=== PATIENT | female | born 1980 | race Caucasian/White ===

== ENCOUNTER → 2020-10-21 09:48 | Outpatient (CLI) | payer OTHER, SELFPAY ==
--- NOTE | ~2020-10-21 | US_ITS ---
EXAMINATION: US right upper quadrant EXAM DATE: 10/21/2020 10:10 INDICATION: R10.11 - Right upper quadrant pain TECHNIQUE: Multiple grayscale and Doppler images of the abdomen right upper quadrant were obtained (b y a technologist who performed the scan) and subsequently reviewed. There is no prior study for adonis miles. FINDINGS: The pancreatic head and body are normal in appearance. The pancreatic tail is not visualized. The l iver has normal echogenicity and contour. There are no focal liver lesions identified (small liver m ass seen on CT 2016 on identified on the study). There is no evidence of intrahepatic biliary duct dilation. Portal venous flow was seen in the hepatopedal, normal direction and has normal Doppler wa veform. No right-sided hydronephrosis. Common bile duct measures 4 mm, which is normal. The gallbladder wall is normal in thickness, with ex pected amount of distention. No sonographic evidence of pericholecystic fluid. There is no cholelit hiases. Technologist performing exam reports patient did not demonstrate sonographic Sapp's sign. Please note that this sign is less reliable in patients who have received pain medication. IMPRESSION: 1. Unremarkable abdominal ultrasound exam. Reviewed, dictated and finalized at location B. IVING TEAM MEMBER
== END ==
PROVIDERS: PCP Family Medicine; Visit Provider Physician Assistant
DX: R10.11 Right upper quadrant pain (principal)
CPT/HCPCS: 76705

== ENCOUNTER 2020-12-29 16:58 | Emergency (ER) | payer OTHER, SELFPAY ==
--- NOTE | 2020-12-29 17:11 | ED.GENADULT ---
HPI - General Adult General Chief complaint: Animal Bite Stated complaint: Dog Bite Time Seen by Provider: 12/29/20 17:11 Source: patient Mode of arrival: ambulatory Limitations: no limitations History of Present Illness HPI narrative: 40-year-old female patient presents to the [facility] with complaints of dog bite to the right hand, middle finger. 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 Patient states that she thinks that the dog is not up-to-date on shots and states that she was concerned because the cleanliness of the home was not good either. Patient denies any history of diabetes. Patient states she thinks her last tetanus was over 10 years ago. Related Data Allergies Allergy/AdvReac Type Severity Reaction Status Date / Time sulfamethoxazole Allergy Unknown Anaphylactic Verified 12/29/20 17:16 Shock trimethoprim Allergy Unknown Anaphylactic Verified 12/29/20 17:16 Shock Review of Systems Review of Systems: Narrative: CONSTITUTIONAL: Denies fever, chills, or sweats. EYES: Denies visual changes, redness, or discharge. ENT: Denies rhinorrhea, congestion, sore throat, or otalgia. CARDIOVASCULAR: Denies chest pain, palpitations, or edema. RESPIRATORY: Denies cough or dyspnea. GASTROINTESTINAL: Denies abdominal pain, nausea, vomiting, or diarrhea. GENITOURINARY: Denies dysuria or hematuria. SKIN: Denies rash or itching. Positive dog bite to right middle finger MUSCULOSKELETAL: Denies back pain, joint pain, or myalgia. NEUROLOGIC: Denies headache, numbness, or weakness. PSYCHIATRIC: Denies anxiety or depression. [facility] Past Medical History Medical History History of appendicitis Liver hemangioma BARRETT (obstructive sleep apnea) Ovarian cyst Surgical History Surgical History History of appendectomy History of removal of ovarian cyst Family History Family History Grandparent Chronic kidney disease Cancer Other Ovarian cancer Father Hypertension Mother Asthma Social History Social History Years smoked: 20 Smoking status: Current some day smoker Tobacco type: cigarettes Second hand tobacco smoke exposure: No Alcohol intake: current Drinks per week: 12 Substance use: never Substance use type: does not use Gender identity (if verbalized by the patient): Female Comments At the time of my signature I agree with nursing past medical history, surgical, social, and family history. There is no relevant family history pertinent to the presenting complaint. Exam Narrative: Exam Narrative: GENERAL: Well-appearing, well-nourished, and in no acute distress. HEAD: Normocephalic, atraumatic. EYES: PERRLA and EOMI. ENT: Nares clear, no rhinorrhea or epistaxis. Mucous membranes moist. NECK: Supple. No lymphadenopathy CHEST: Clear to auscultation. No respiratory distress. HEART: Regular rate and rhythm. No murmur heard. Normal peripheral pulses. ABDOMEN: Soft, nontender, nondistended, normal active bowel sounds. EXTREMITIES: Normal range of motion. No edema. SKIN: Warm, dry, no rash. Patient has some superficial abrasions and puncture and wounds noted to the right middle finger between the PIP and MIP joints. No active bleeding at this time. Patient has excellent range of motion. NEURO: No focal deficits. Alert and oriented x3. Course Vital Signs Vital signs: Vital Signs Temperature 36.3 C L 12/29/20 17:16 Pulse Rate 76 12/29/20 17:16 Respiratory Rate 16 12/29/20 17:16 Blood Pressure 143/97 H 12/29/20 17:16 Pulse Oximetry 99 12/29/20 17:16 Temperature 36.3 C L 12/29/20 17:16 Pulse Rate 76 12/29/20 17:16 R
[2020-12-29 17:16] VITALS: BP 143/97; PULSE 76; RESP 16; TEMP 36.3; O2SAT 99
[2020-12-29] MEDS: TETANUS,DIPHTHERIA,AC PERTUSSIS ADULT (0.5 ML) BOOSTRIX IM (17:27)
== END 2020-12-29 17:49 | disposition home or self-care (01) ==
PROVIDERS: Emergency Provider Nurse Practitioner Family; PCP Family Medicine
DX: S61.232A Puncture wound without foreign body of right middle finger without damage to nail, initial encounter (principal); S60.412A Abrasion of right middle finger, initial encounter; W54.0XXA Bitten by dog, initial encounter; Z23 Encounter for immunization; F17.210 Nicotine dependence, cigarettes, uncomplicated; G47.30 Sleep apnea, unspecified
CPT/HCPCS: 90471; 90715; 99213; G0463

== ENCOUNTER 2021-09-16 06:58 | Observation (INO) | payer OTHER, SELFPAY ==
[2021-09-16 08:35] VITALS: BMI 29.9
--- NOTE | 2021-09-19 07:42 | PM.OBTRLD ---
OB - Triage/Final Diagnosis Visit Information Reason for evaluation: threatened labor Comments/Additional reasons for admission: I have assessed the risk for this patient, Erin Adonis Tavarez, and determined that she would benefit from observation care.
== END 2021-09-16 08:50 | disposition home or self-care (01) ==
PROVIDERS: Admitting Provider Obstetrics & Gynecology; PCP Family Medicine; Visit Provider Obstetrics & Gynecology
DX: O47.1 False labor at or after 37 completed weeks of gestation (principal); Z3A.37 37 weeks gestation of pregnancy
CPT/HCPCS: G0378; G0379

== ENCOUNTER 2021-10-01 17:10 | Inpatient (IN) | payer OTHER, SELFPAY ==
[2021-10-01] VITALS (11 sets, daily range): BP systolic 93–109; BP diastolic 51–66; PULSE 79–90; RESP 18; TEMP 36.7–36.8
--- NOTE | 2021-10-01 17:37 | WPDANESEPP ---
Anes - Eval Pre Procedure Procedure: Labor epidural Date/Time: 10/01/21 17:37 Surgeon: Satinder Preop Diagnosis: Abd pain with contractions Pre Op Diagnosis: iol Patient Data Age: 40 Gender: F Height: Weight: Allergies Allergy/AdvReac Type Severity Reaction Status Date / Time sulfamethoxazole Allergy Severe Anaphylactic Verified 09/04/21 15:46 Shock trimethoprim Allergy Severe Anaphylactic Verified 09/04/21 15:46 Shock Home Medications Medication Instructions Recorded Confirmed Type aspirin [Aspirin Low Dose] 81 mg PO DAILY 09/04/21 09/16/21 History ferrous sulfate 325 mg PO DAILY 09/04/21 09/16/21 History prenat.vits,veronica,[id number] 1 tablet PO DAILY 09/04/21 09/16/21 History Patient hx anesthesia problems: none Family hx anesthesia problems: none Results Review: All pre-operative results and documents have been reviewed as part of the pre-operative evaluation. [facility] Past Medical History Medical History Anemia History of appendicitis History of smoking Liver hemangioma Obesity BARRETT (obstructive sleep apnea) Ovarian cyst Panic attack Polyhydramnios and not yet delivered Surgical History Surgical History History of appendectomy History of removal of ovarian cyst Family History Family History Grandparent Chronic kidney disease Cancer Other Ovarian cancer Father Hypertension Mother Asthma Social History Social History Years smoked: 20 Smoking status: Current some day smoker Tobacco type: cigarettes Second hand tobacco smoke exposure: No Alcohol intake: current Drinks per week: 12 Substance use: never Substance use type: does not use Gender identity (if verbalized by the patient): Female Spiritual care concerns: No Exam Day of Procedure 10/01/21 17:37 Patient weight: obese Airway: Mallampati scale class II Neurological: alert and oriented
[2021-10-01 17:47] LABS: Basophils Absolute Auto 0.1 K/mm3 (0.0-0.1); Basophils Percent Auto 0.5 % (0.2-1.2); Eosinophils Absolute Auto 0.1 K/mm3 (0-0.3); Eosinophils Percent Auto 0.7 % (0-4.4); Hematocrit 32.7 % (37.0-47.0); Hemoglobin 11.1 g/dL (12.0-15.0); Immature Granulocyte Absolute 0.23 K/mm3 (0.00-0.031); Immature Granulocyte Percent A 1.9 % (0-0.5); Lymphocytes Absolute Auto 1.61 K/mm3 (0.9-3.2); Lymphocytes Percent Auto 13.6 % (18.3-44.2); Mean Corpuscular HGB Conc 33.9 g/dl (32-36); Mean Corpuscular Volume 91.3 fl (80-100); Mean Platelet Volume 9.4 fl (7.4-10.4); Monocytes Absolute Auto 0.8 K/mm3 (0.1-0.6); Monocytes Percent Auto 6.4 % (2.6-8.5); Neutrophils Absolute Auto 9.1 K/mm3 (1.3-6.7); Neutrophils Percent Auto 76.9 % (45.5-73.1); Platelet Count Result 238 k/mm3 (150-375); Red Blood Count 3.58 M/mm3 (4.2-5.4); White Blood Count 11.8 K/mm3 (4.5-10.0)
--- NOTE | 2021-10-01 17:56 | LDADM ---
This patient, Erin Tavarez, was admitted to Labor/Delivery/Recovery 105 on 10/01/21 at 17:10. Plans for labor, pain management and were discussed with patient. Patient/family oriented to hospital policies and general routines including ID bracelet, bed and alarms, visiting hours, pain management, procedures, bathroom and other care routines, personal items, smoking policy, room service/diet and guest tray routines, infant security routines, and visiting hours. Patient/Family are encouraged to report perceived risks to care and to ask questions if they do not understand what they are told or what they should do. See OBIX for further documentation.
[2021-10-01] MEDS: DINOPROSTONE 10 MG VAG INSERT VAGINAL (18:26)
[2021-10-02] VITALS (108 sets, daily range): BP systolic 45–145; BP diastolic 13–118; PULSE 69–181; RESP 16–18; TEMP 36.2–37.4; O2SAT 89–100
[2021-10-02] MEDS: LACTATED RINGERS 1,000 ML 125 ML IV CONT ×3 (05:19→11:10)
[2021-10-02] MEDS: OXYTOCIN 30 UNITS/NS 500 ML 30 UNITS/500 ML BAG 6 UNITS IV CONT (05:19)
[2021-10-02 06:38] LABS: Rapid Plasma Reagin Non-Reactive (NonReactive)
--- NOTE | 2021-10-02 07:30 | PM.IMHP ---
H&P: HPI History of Present Illness Date/Time: 10/02/21 07:30 40-year-old 1 patient admitted for induction of labor at39+ weeks. She also has a known uterine left broad ligament fibroid which to this point has obstructed the vertex from entering the pelvis. Otherwise she has had advanced maternal age genetic counseling and all of the testing was normal in this regard. All or other labs are on the chart and are also normal as well. Chief Complaint: Review of Systems Review of Systems: All systems reviewed & are unremarkable except as noted in HPI and below PMFSH Past Medical History Medical History Anemia History of appendicitis History of smoking Liver hemangioma Obesity BARRETT (obstructive sleep apnea) Ovarian cyst Panic attack Polyhydramnios and not yet delivered Surgical History Surgical History History of appendectomy History of removal of ovarian cyst Family History Family History Grandparent Chronic kidney disease Cancer Other Ovarian cancer Father Hypertension Mother Asthma Social History Social History Years smoked: 20 Smoking status: Never smoker Tobacco type: cigarettes Second hand tobacco smoke exposure: No Alcohol intake: current Drinks per week: 12 Substance use: never Substance use type: does not use Gender identity (if verbalized by the patient): Female Spiritual care concerns: No Meds Home Medications and Allergies Home Medications Medication Instructions Recorded Confirmed Type aspirin [Aspirin Low Dose] 81 mg PO DAILY 09/04/21 09/16/21 History ferrous sulfate 325 mg PO DAILY 09/04/21 09/16/21 History prenat.vits,veronica,[id number] 1 tablet PO DAILY 09/04/21 09/16/21 History Allergies Allergy/AdvReac Type Severity Reaction Status Date / Time sulfamethoxazole Allergy Severe Anaphylactic Verified 09/04/21 15:46 Shock trimethoprim Allergy Severe Anaphylactic Verified 09/04/21 15:46 Shock Vital Signs Vital Signs - 24 hr 10/01/21 18:30 10/01/21 18:31 10/01/21 18:45 Temperature 36.8 C Pulse Rate 82 81 Respiratory Rate 18 Blood Pressure 109/66 105/66 10/01/21 19:01 10/01/21 19:15 10/01/21 19:30 Temperature Pulse Rate 90 82 79 Respiratory Rate Blood Pressure 103/59 L 104/64 105/62 10/01/21 19:45 10/01/21 20:00 10/01/21 20:15 Temperature Pulse Rate 83 86 80 Respiratory Rate Blood Pressure 93/52 L 94/51 L 102/64 10/01/21 20:30 10/01/21 22:03 10/02/21 00:29 Temperature 36.7 C Pulse Rate 83 82 Respiratory Rate 18 Blood Pressure 105/65 106/64 10/02/21 01:21 10/02/21 04:02 10/02/21 05:19 Temperature 36.7 C 36.9 C Pulse Rate 79 Respiratory Rate 16 18 Blood Pressure 112/79 10/02/21 05:30 10/02/21 05:45 10/02/21 06:00 Temperature Pulse Rate 85 82 77 Respiratory Rate Blood Pressure 113/69 92/52 L 97/53 L 10/02/21 06:15 10/02/21 06:30 10/02/21 06:46 Temperature 37.4 C Pulse Rate 77 79 81 Respiratory Rate Blood Pressure 108/69 94/57 L 114/74 10/02/21 07:19 10/02/21 07:27 Temperature Pulse Rate 111 H 78 Respiratory Rate Blood Pressure 45/13 L 118/54 L Exam Const: General: cooperative and healthy appearing Resp: Auscultation: clear to auscultation bilaterally Cardio: Rate: regular rate Rhythm: regular rhythm : Bimanual exam- vagina & uterus: enlarged (Fundal height 39cm heart tones 140) Manual OB Exam: dilated 1 cm, effaced 75% and station high (-3/head is well engaged. Artificial rupture of membranes with clear fluid noted as well as head again engaged against the cervix) H&P: Results Labs Labs: Short CBC 10/01/21 Range/Units 17:40 WBC 11.8 H (4.5-10.0) K/mm3 Hgb
[2021-10-02] MEDS: OXYTOCIN 30 UNITS/NS 500 ML 30 UNITS/500 ML BAG 125 UNITS IV CONT (15:01)
--- NOTE | 2021-10-02 15:04 | P.PCNOB_ITS ---
OB - Delivery Note Procedure Route of delivery: Episiotomy description: None Laceration Description: Vaginal - 2nd Degree Delivery repair: chromic Specimen: No Quantitative Blood Loss (ml): 350 Anesthesia type: Epidural Disposition: floor Narrative: Prepped and draped in the usual for this procedure. Maternal expuls diana efforts delivered vertex with nuchal cord noted And clamped and cut. Rest of baby was delivered difficulty and placenta delivered spontaneously as well. Uterus was well contracted and second-degree laceration with bilateral sulcus tears were noted. Tears were approximated in 2 0 chromic in a running interlocking manner to approximate vaginal tissue and then the second-degree laceration was closed in the same manner to 2 0 chromic to approximate the vaginal tissue deep tissue was then approximated using 2 0 chromic in a subcuticular layer of 2-0 chromic to approximate the perineum. At this point the uterus again was well contracted with no there is no bleeding from any the vaginal laceration or tears and we immediate postoperative condition mother baby both excellent. Baby Weeks of gestation at delivery: 39 Infant gender: Female Weight (pounds): 7 Weight (ounces): 0 score one minute: 9 score five minutes: 9
--- NOTE | 2021-10-02 15:04 | WPDHPUPDATE1 ---
History and Physical Update Update Date/Time: 10/02/21 15:04 History and Physical has been reviewed, including an updated exam of the patient. There are NO changes in the patient's condition. Risks, benefits, and alternatives have been discussed and questions answered. Patient agrees to proceed with procedure.
[2021-10-02] MEDS: WITCH HAZEL 40 PADS 1 PAD TOPICAL (18:26)
[2021-10-02] MEDS: IBUPROFEN 600 MG TABLET PO (18:26)
[2021-10-02] MEDS: BENZOCAINE 20% AER SPR (*SP) 56 GM CAN 1 SPRAY TOPICAL (18:26)
--- NOTE | 2021-10-03 02:55 | OBPPTRN ---
10/02/2021 at 1918. Patient transferred to post room #279. Support person present. Oriented to unit, room, information board, rooming in, admission packet and security measures. Patient verbalizes understanding.
[2021-10-03 04:30] VITALS: BP 82/47; PULSE 87; RESP 18; TEMP 37.1
[2021-10-03] MEDS: IBUPROFEN 600 MG TABLET PO ×3 (04:46→23:10)
[2021-10-03 04:52] LABS: Hemoglobin 8.5 g/dL (12.0-15.0)
[2021-10-03] MEDS: MULTIVIT/MIN/PREN/FOL AC/IRON TABLET 1 TAB PO (08:22)
[2021-10-03] MEDS: POLYSACCHARIDE IRON COMPLEX 150 MG CAPSULE PO ×2 (08:22→16:31)
[2021-10-03 08:23] VITALS: BP 98/55; PULSE 80; RESP 16; TEMP 36.5; O2SAT 98
[2021-10-03] MEDS: DOCUSATE SODIUM 100 MG CAPSULE PO ×2 (08:23→16:31)
--- NOTE | 2021-10-03 08:40 | PM.OBDSVD ---
DS: Admitting Diagnosis Discharge Date 10/04/2021 Admitting Diagnosis OB - DS: Summary OB Procedures : None OB Procedures Intrapartum: Spontaneous Vag Delivery OB Procedures: : None Time Spent with Patient Time attestation: Total time spent providing and/or coordinating discharge services: DS: Data Data Completed and Pending Labs on day of discharge: Labs from last 24 hours 10/03/21 04:39 Hgb 8.5 L Hct 26.0 L Discharge Plan Discharge Discharging Clinician: Eric Rajan Anticipated Discharge Date/Time: 10/04/21 08:41 Patient Disposition: Home, Self-Care Activity: as tolerated Diet: as tolerated Patient Instructions: Antibiotic Form Stand Alone Forms: General Discharge Information Follow-up/Referrals: Eric Rajan MD [Physician] - 3 Weeks Discharge Medications: New ibuprofen 600 mg Tablet 600 mg PO Q6H PRN (Reason: Cramping) Qty: 30 RF: 0 Continued ferrous sulfate 325 mg (65 mg iron) Tablet 325 mg PO DAILY RF: 0 prenat.vits,veronica,[id number] Tablet 1 tablet PO DAILY RF: 0 Discontinued aspirin [Aspirin Low Dose] 81 mg Tablet,Delayed Release (Dr/Ec) 81 mg PO DAILY RF: 0 Date of admission: 10/01/21 17:10 Primary Care Provider: Selene Newton Admitting Provider: Eric Rajan Attending physician on admission: Eric Rajan Condition: Stable
--- NOTE | 2021-10-03 14:20 | WPDANLDPN2 ---
Anes-Prog Note L&D Date/Time: 10/03/21 14:20 Comfortable throughout: labor and delivery Neuraxial method: epidural Epidural/Spinal procedure site: clean & non-tender Neuro status: Neuro function grossly intact. Cardiovascular status: normal Respiratory status: normal Airway patency: baseline Mental status: baseline Post-Op hydration status: normal Vital Signs: Last Vital Signs Temp 36.5 C 10/03/21 08:23 Pulse 80 10/03/21 08:23 Resp 16 10/03/21 08:23 BP 98/55 L 10/03/21 08:23 Pulse Ox 98 10/03/21 08:23 Pain score (VAS): 0 I/O: Intake & Output 10/02/21 10/03/21 10/03/21 23:59 07:59 15:59 Intake Total 500 Output Total 900 Balance -400 Post-procedural complaints: none Patient feedback: Patient satisfied with anesthetic care.
[2021-10-03 18:56] VITALS: BP 105/55; PULSE 102; RESP 18; TEMP 36.6
[2021-10-03] MEDS: WITCH HAZEL 40 PADS 1 PAD TOPICAL (23:10)
[2021-10-04] MEDS: DOCUSATE SODIUM 100 MG CAPSULE PO (09:51)
[2021-10-04] MEDS: MULTIVIT/MIN/PREN/FOL AC/IRON TABLET 1 TAB PO (09:51)
[2021-10-04] MEDS: POLYSACCHARIDE IRON COMPLEX 150 MG CAPSULE PO (09:51)
[2021-10-04 09:52] VITALS: BP 116/68; PULSE 111; RESP 16; TEMP 36.6; O2SAT 100
[2021-10-04] MEDS: IBUPROFEN 600 MG TABLET PO (09:52)
[2021-10-06 07:47] VITALS: BP 110/73; PULSE 70; RESP 16; TEMP 36.6; O2SAT 100
--- NOTE | 2021-10-07 08:10 | PM.OBDSVD ---
DS: Admitting Diagnosis Discharge Date 10/04/21 Admitting Diagnosis OB - DS: Summary OB Procedures : None OB Procedures Intrapartum: Spontaneous Vag Delivery OB Procedures: : None Time Spent with Patient Time attestation: Total time spent providing and/or coordinating discharge services: Discharge Plan Discharge Discharging Clinician: Eric Rajan Anticipated Discharge Date/Time: 10/04/21 08:41 Patient Disposition: Home, Self-Care Activity: as tolerated Diet: as tolerated Discharge Instructions: Education: Mom and Baby Guide Given to: Mother Follow-Up: Call your delivering provider's office for an appointment to be seen in: 3 weeks Mom and baby should come to the [facility] for the follow-up appointment. Appointment Date/Time: Wednesday, October 06, 2021 at 8:00 am What to expect at your follow-up visit: Physical Assessment Call [phone] if you are unable to keep your appointment time. BREAST CARE: * Wear a snug supportive bra. * For engorgement discomfort: Breast Feeding: * Apply warm moist washcloths * Express milk as needed to relieve engorgement * Wear loose clothing Bottle Feeding: * May apply ice packs * For sore nipples: * Identify correct latch-on * Apply warm moist washcloths before and after nursing * Air dry nipples after nursing * May apply Lansinoh cream to nipples EPISIOTOMY/PERINEAL CARE: * Until bleeding stops, use your kingston bottle after urinating * Change your pad frequently throughout the day * You may take sitz baths several times a day (fill your bathtub with warm water and soak for 20 minutes.) Do NOT bathe in the water * No tub baths until seen by your physician - You may shower ACTIVITY: * Rest as much as possible. * Do not exercise or lift anything heavier than your baby (such as laundry or other children.) * Avoid stairs or driving as much as possible. * Do not put anything into the vagina. No douching, tampons, or sexual activity until seen by physician. NOTIFY PHYSICIAN IF YOU HAVE ANY QUESTIONS OR IF ANY OF THE FOLLOWING SYMPTOMS OCCUR: * If your episiotomy or incision becomes red, swollen, or more painful than what you have experienced in the hospital. * If your vaginal bleeding becomes foul smelling. * If your vaginal bleeding becomes more heavy than a period or if your bleeding changes from pink to bright red. However, you may pass an occasional walnut-sized clot once or twice for the first week . * If you experience a sharp, shooting pain in you calves. * If you discover a hard, reddened area on your breast or if you experience flu-like symptoms. DIET: * Eat regular, well-balanced meals. * Drink plenty of fluids daily. If , drink to thirst. Patient Instructions: Antibiotic Form Follow-up/Referrals: Eric Rajan MD [Physician] - 3 Weeks Discharge Medications: New ibuprofen 600 mg Tablet 600 mg PO Q6H PRN (Reason: Cramping) Qty: 30 RF: 0 Continued ferrous sulfate 325 mg (65 mg iron) Tablet 325 mg PO DAILY RF: 0 prenat.vits,veronica,[id number] Tablet 1 tablet PO DAILY RF: 0 Discontinued aspirin [Aspirin Low Dose] 81 mg Tablet,Delayed Release (Dr/Ec) 81 mg PO DAILY RF: 0 Date of admission: 10/01/21 17:10 Primary Care Provider: Selene Newton Admitting Provider: Eric Rajan Attending physician on admission: Eric Rajan Condition: Stable
== END 2021-10-04 13:12 | disposition home or self-care (01) | DRG 807 ==
LOC: ANHLDR 17:12 → ANHOB2 10-02 19:23
PROVIDERS: Admitting Provider Obstetrics & Gynecology; PCP Family Medicine; Visit Provider Obstetrics & Gynecology
DX: O34.13 Maternal care for benign tumor of corpus uteri, third trimester (principal); Z37.0 Single live birth; Z3A.39 39 weeks gestation of pregnancy; D25.9 Leiomyoma of uterus, unspecified; O69.1XX0 Labor and delivery complicated by cord around neck, with compression, not applicable or unspecified; O36.8330 Maternal care for abnormalities of the fetal heart rate or rhythm, third trimester, not applicable or unspecified; O70.1 Second degree perineal laceration during delivery; O99.02 Anemia complicating childbirth; D64.9 Anemia, unspecified; G47.33 Obstructive sleep apnea (adult) (pediatric)
CPT/HCPCS: 36415; 85014; 85018; 85025; 86592; 86850; 86900; 86901; A9270; J2590; J7120

== ENCOUNTER → 2022-01-27 11:11 | Outpatient (CLI) | payer OTHER, SELFPAY ==
--- NOTE | ~2022-01-27 | US_ITS ---
EXAMINATION: US pelvic complete w TV DATE: 01/27/2022 11:40 INDICATION: Benign neoplasm of connective and other soft tissues. TECHNIQUE: Multiple transabdominal and transvaginal sonographic images of the pelvis were obtained. COMPARISON: CT abdomen and pelvis 07/12/2016 FINDINGS: TRANSABDOMINAL ULTRASOUND: The uterus measures 8.3 x 4.4 x 5.8 cm. There is no free fluid in the pelvis. TRANSVAGINAL ULTRASOUND: The endometrial complex measures 11 mm in thickness. There is a 3.0 cm subserosal fibroid in the ante rior lower uterine segment. There is a 5.1 cm subserosal fibroid in the posterior lower uterine segme nt. The right ovary measures 2.3 x 1.8 x 2.2 cm. The left ovary measures 4.4 x 3.4 x 4.6 cm. There is a 3.4 cm cyst in left ovary, likely a follicular cyst. There is normal vascular flow in the ovaries. IMPRESSION: 1. Uterine fibroids. 2. 3.4 cm cyst in left ovary, likely a follicular cyst. Reviewed, dictated and finalized at location A.
== END ==
PROVIDERS: Visit Provider Obstetrics & Gynecology
DX: D25.2 Subserosal leiomyoma of uterus (principal); N83.202 Unspecified ovarian cyst, left side
CPT/HCPCS: 76830; 76856

== ENCOUNTER 2022-04-21 14:31 | Outpatient (CLI) | payer OTHER, SELFPAY ==
[2022-04-21 15:10] LABS: Basophils Percent Auto 0.4 % (0.2-1.2); Eosinophils Absolute Auto 0.2 K/mm3 (0-0.3); Eosinophils Percent Auto 1.6 % (0-4.4); Hematocrit 35.8 % (37.0-47.0); Immature Granulocyte Absolute 0.04 K/mm3 (0.00-0.031); Immature Granulocyte Percent A 0.4 % (0-0.5); Lymphocytes Absolute Auto 1.96 K/mm3 (0.9-3.2); Lymphocytes Percent Auto 20.9 % (18.3-44.2); Mean Corpuscular HGB Conc 33.5 g/dl (32-36); Mean Corpuscular Hemoglobin 29.2 pg (26-34); Mean Corpuscular Volume 87.1 fl (80-100); Mean Platelet Volume 9.7 fl (7.4-10.4); Monocytes Absolute Auto 0.6 K/mm3 (0.1-0.6); Neutrophils Absolute Auto 6.6 K/mm3 (1.3-6.7); Neutrophils Percent Auto 70.7 % (45.5-73.1); Platelet Count Result 276 k/mm3 (150-375); Red Blood Count 4.11 M/mm3 (4.2-5.4); Red Cell Distribution Width 14.3 % (11.5-14.5); White Blood Count 9.4 K/mm3 (4.5-10.0)
[2022-04-21 20:15] LABS: HIV 1/2 Ab P24 Ag Result Negative (Negative)
[2022-04-21 20:42] LABS: Hepatitis B Surface Antigen Negative (Negative); Rubella IgG Antibody 3.4 IU/ML
[2022-04-22 10:59] LABS: Rapid Plasma Reagin Non-Reactive (NonReactive)
== END 2022-04-21 14:32 | disposition home or self-care (01) ==
PROVIDERS: PCP Family Medicine; Visit Provider Obstetrics & Gynecology
DX: N94.89 Other specified conditions associated with female genital organs and menstrual cycle (principal)
CPT/HCPCS: 36415; 85025; 86592; 86644; 86703; 86747; 86762; 86787; 86900; 86901; 87077; 87086; 87186; 87340; G0432

== ENCOUNTER → 2022-04-21 15:16 | Outpatient (CLI) | payer OTHER, SELFPAY ==
--- NOTE | ~2022-04-21 | US_ITS ---
EXAMINATION: US OB <= 14 weeks fetus DATE: 04/21/2022 15:37 INDICATION: First trimester viability assessment TECHNIQUE: Real-time pelvic transabdominal and transvaginal ultrasound was performed. COMPARISON: None. FINDINGS: The uterus measures 13.1 x 8.2 x 9.1 cm. There is an intrauterine gestational sac. A yolk sac is identified. There is no detectable cardiac activity. The right ovary is not visualized h owever no right adnexal abnormality is seen. The left ovary measures 5.3 x 3.8 x 4.5 cm. There is nor mal vascular flow in the left ovary. There is no free fluid in the pelvis. IMPRESSION: 1. demise. Reviewed, dictated and finalized at location A. IMPRESSION: 1. demise.
== END ==
PROVIDERS: PCP Obstetrics & Gynecology; Visit Provider Obstetrics & Gynecology
DX: O36.4XX1 Maternal care for intrauterine death, fetus 1 (principal)
CPT/HCPCS: 76801

== ENCOUNTER 2022-04-22 11:26 | Day surgery (SDC) | payer OTHER, SELFPAY ==
[2022-04-22 10:10] VITALS: BMI 26.1
--- NOTE | 2022-04-22 10:18 | PC.NURSE ---
Report to the Outpatient Waiting Room, entrance under the green pavilion located off [facility], at time 1130 on date 04/22/22. OR Time: 1330. - You and your visitor will be asked a series of questions to screen for COVID 19 for your protection. - Only one visitor is allowed at this time. - The patient visitor is requested to leave or wait in car when not with patient. - A mask is required within the hospital. Patients may have clear liquids (water, carbonated beverages, clear teas, apple juice) until 3 hours prior to surgery with a maximum of 20 ounces. - No food from midnight until time of surgery Take the following medications with a SIP of water the morning of surgery: ALREADY TOOK MORNING MEDS Medications to discontinue per physician: N/A Date to take last dose: N/A Please no make-up, nail anguillan, hairspray, perfume, deodorant, or body powder the day of surgery. No jewelry (including any body piercings) or valuables the day of surgery, leave them at home. Please take a shower or bath the night before, or the morning of, surgery with an antibacterial soap. Wear comfortable, loose fitting clothing. - Jewelry must be removed prior to entering the operating room. Rings and piercings that are not removed may be cut off. - The hospital will not accept responsibility for valuables. - Please leave all valuables, including medications, at home the day of surgery. If you are going home after surgery, a licensed driver trainer must drive you home. - NO public transportation without another adult. - We recommend that an adult stay with you for 24 hours following discharge. - We also recommend that you do not drive, make important decision, drink alcoholic beverages, or take any drugs that were not prescribed by your health care provider for at least 24 hours after your discharge time. Follow any additional instructions given to you from your surgeon. If you or anyone in your household have experienced Covid symptoms in the past week, please notify your surgeon or the nurse liaison at the phone number below for possible testing. Telephone instructions given to PT - ASHA WEBB and asked if any additional questions and then verbalized understanding. Patient advised to call surgeon office or pre surgery nurse liaison [phone] if any additional questions.
--- NOTE | 2022-04-22 11:29 | PM.IMHP ---
H&P: HPI History of Present Illness Date/Time: 04/22/22 11:29 41-year-old female 2 para 1 0 now 1 1 female presents at 11 weeks by last menstrual period with a 10 week pole with no cardiac activity. This was documented yesterday and confirmed today in the office. She has had no significant bleeding or pain. Does have a known history of uterine fibroids. Chief Complaint: Missed A/B Review of Systems Review of Systems: All systems reviewed & are unremarkable except as noted in HPI and below PMFSH Past Medical History Medical History Anemia History of appendicitis History of smoking Liver hemangioma Obesity BARRETT (obstructive sleep apnea) Ovarian cyst Panic attack Polyhydramnios and not yet delivered Suppression of menstruation Surgical History Surgical History History of appendectomy age 7 History of laparoscopy 07/24/15 lscope ovarian cystectomy/chromopertubation History of removal of ovarian cyst 07/24/15 Family History Family History Grandparent Chronic kidney disease Alcohol abuse maternal grandfather Carcinoma of colon maternal grandmother Malignant tumor of ovary maternal grandmother Other Malignant tumor of ovary Malignant tumor of cervix Paternal Aunt Father Hypertension Alcohol abuse Mother Asthma Alcohol abuse Social History Social History Social History: Years smoked: 20 Smoking status: Former smoker Tobacco type: cigarettes Second hand tobacco smoke exposure: No Smoking end date: 10/31/16 Alcohol intake: never Alcohol use details: Rarely Substance use: never Substance use type: does not use Living arrangements: with family Gender identity (if verbalized by the patient): Female Sexual Orientation (if Verbalized by the Patient): Straight or Heterosexual Spiritual care concerns: No Meds Home Medications and Allergies Home Medications Medication Instructions Recorded Confirmed Type prenat.vits,veronica,ijv-csol-fbsud 1 tablet PO DAILY 09/04/21 04/22/22 History Allergies Allergy/AdvReac Type Severity Reaction Status Date / Time sulfamethoxazole Allergy Severe Anaphylactic Verified 04/22/22 10:09 Shock trimethoprim Allergy Severe Anaphylactic Verified 04/22/22 10:09 Shock Exam Const: General: cooperative, healthy appearing and comfortable Resp: Effort & Inspection: normal respiratory effort Auscultation: clear to auscultation bilaterally Cardio: Rate: regular rate Rhythm: regular rhythm GI: Inspection: normal to inspection Auscultation: normal bowel sounds : External Female Exam: normal external appearance Speculum Exam - Vagina: normal appearance of the vagina Speculum Exam - Cervix: normal appearance of the cervix Bimanual exam- vagina & uterus: enlarged ( 12 week size with fibroids palpated) Bimanual Exam- Adnexa, other: normal adnexae Assessment and Plan Assessment and plan (1) Missed with demise before 20 completed weeks of gestation: Code(s): O02.1 - Missed Status: Acute Assessment and Plan: proceed with suction curettage.
[2022-04-22] MEDS: ACETAMINOPHEN 500 MG TABLET 1000 MG PO (12:20)
[2022-04-22] MEDS: LACTATED RINGERS 1,000 ML 30 ML IV CONT (12:20)
[2022-04-22 12:24] VITALS: BP 111/66; PULSE 88; RESP 16; TEMP 37; O2SAT 100
--- NOTE | 2022-04-22 12:55 | WPDANESEPPF ---
Anes - Initial Pre Proc Eval Procedure: Operation Date: 04/22/22 13:30 Proposed Procedures p Suction Dilation and Curettage - Eric Rajan MD Date/Time: 04/22/22 12:55 Surgeon: Erci Rajan MD Pre Op Diagnosis: missed ab Patient Data Age: 41 Gender: F Height: 1.68 m Weight: 73.5 kg Last Vital Signs Temp 37.0 C 04/22/22 12:24 Pulse 88 04/22/22 12:24 Resp 16 04/22/22 12:24 BP 111/66 04/22/22 12:24 Pulse Ox 100 04/22/22 12:24 O2 Del Method Room Air 04/22/22 12:24 Allergies Allergy/AdvReac Type Severity Reaction Status Date / Time sulfamethoxazole Allergy Severe Anaphylactic Verified 04/22/22 12:23 Shock trimethoprim Allergy Severe Anaphylactic Verified 04/22/22 12:23 Shock Home Medications Medication Instructions Recorded Confirmed Type prenat.vits,veronica,fff-kigm-azakt 1 tablet PO DAILY 09/04/21 04/22/22 History Patient hx anesthesia problems: none Family hx anesthesia problems: none Results Review: All pre-operative results and documents have been reviewed as part of the pre-operative evaluation. [facility] Past Medical History Medical History Anemia History of appendicitis History of smoking Liver hemangioma Obesity BARRETT (obstructive sleep apnea) Ovarian cyst Panic attack Polyhydramnios and not yet delivered Suppression of menstruation Surgical History Surgical History History of appendectomy age 7 History of laparoscopy 07/24/15 lscope ovarian cystectomy/chromopertubation History of removal of ovarian cyst 07/24/15 Family History Family History Grandparent Chronic kidney disease Alcohol abuse maternal grandfather Carcinoma of colon maternal grandmother Malignant tumor of ovary maternal grandmother Other Malignant tumor of ovary Malignant tumor of cervix Paternal Aunt Father Hypertension Alcohol abuse Mother Asthma Alcohol abuse Social History Social History Social History: Years smoked: 20 Smoking status: Former smoker Tobacco type: cigarettes Second hand tobacco smoke exposure: No Smoking end date: 10/31/16 Alcohol intake: never Alcohol use details: Rarely Substance use: never Substance use type: does not use Living arrangements: with family Gender identity (if verbalized by the patient): Female Sexual Orientation (if Verbalized by the Patient): Straight or Heterosexual Spiritual care concerns: No Anes - Eval Final PreProcedure Day of Procedure 04/22/22 12:55 Patient weight: overweight Heart: regular rate and rhythm Lungs: clear to auscultation Airway: Mallampati scale class II Neurological: alert and oriented Last oral intake: >/= 8 hours ASA classification: II Emergent: no Anesthetic plan: proceed Anesthesia type and monitoring: general GIVS and standard monitoring Results Review: All pre-operative results and documents have been reviewed as part of the pre-operative evaluation. Informed Consent: The patient's anesthetic plan and its attendant risks and benefits were discussed with the patient/family/POA. Questions were solicited and answers provided to the satisfaction of the patient/family/POA.
--- NOTE | 2022-04-22 13:34 | WPDHPUPDATE1 ---
History and Physical Update Update Date/Time: 04/22/22 13:34 History and Physical has been reviewed, including an updated exam of the patient. There are NO changes in the patient's condition. Risks, benefits, and alternatives have been discussed and questions answered. Patient agrees to proceed with procedure.
--- NOTE | 2022-04-22 13:57 | W.PM.PROC2 ---
Procedure Note - Detailed Date of Procedure 04/22/22 Pre-op Diagnosis First-trimester missed ab Post-op Diagnosis Same Procedure Performed Suction curettage of 1st trimester missed Surgeon Eric Rajan MD Anesthesia MAC Findings Ultrasound reveals pole with no cardiac activity. Procedure ultrasound revealed thin lining with no abnormalities other than posterior fibroid which is noted Description of Procedure Patient prepped in usual manner for this procedure cervix dilated to allow the 10minutes with a suction curette to be placed. Suction curetting obtained with moderate amount of tissue removed. Sharp curette with no significant tissue remaining. Ultrasound complete resolution tissue remaining. Patient was then sent to recovery room in stable condition. Estimated Blood Loss 200 Pathology Yes Complications No immediate complications Condition Stable Disposition PACU [facility] Billing Surgery - Charge Forward: Surgery Billing
[2022-04-22 14:00] VITALS: BP 107/63; PULSE 99; RESP 16; O2SAT 99
[2022-04-22 14:30] VITALS: BP 109/67; PULSE 71; RESP 16; O2SAT 100
[2022-04-22 14:50] VITALS: BP 99/67; PULSE 62; RESP 14
== END 2022-04-22 14:56 | disposition home or self-care (01) ==
PROVIDERS: PCP Family Medicine; Visit Provider Obstetrics & Gynecology
PROC: (CPT 59820; principal; 2022-04-22 13:30)
DX: O02.1 Missed abortion (principal); D25.9 Leiomyoma of uterus, unspecified; D64.9 Anemia, unspecified; D18.03 Hemangioma of intra-abdominal structures; G47.33 Obstructive sleep apnea (adult) (pediatric); F41.0 Panic disorder [episodic paroxysmal anxiety]; Z87.891 Personal history of nicotine dependence
CPT/HCPCS: 59820; 88305; A9270; J2250; J2704; J3010; J7120

== ENCOUNTER 2022-05-26 12:08 | Outpatient (CLI) | payer OTHER, SELFPAY | END 2022-05-26 12:09 | disposition home or self-care (01) | LOC: ANHLAB 12:09 | PROVIDERS: PCP Family Medicine; Visit Provider Obstetrics & Gynecology | DX: R30.0 Dysuria (principal) | CPT/HCPCS: 87086 ==

== ENCOUNTER 2022-07-19 16:37 | Outpatient (CLI) | payer OTHER, BC, SELFPAY ==
[2022-07-19 17:07] LABS: Alanine Aminotransferase 17 U/L (6-35); Albumin Level 4.5 g/dL (3.5-5.1); Alkaline Phosphatase 61 U/L (38-126); Anion Gap 9 mmol/L (8-16); Aspartate Amino Transferase 21 U/L (14-36); Bilirubin,Total 0.2 mg/dL (0.2-1.3); Blood Urea Nitrogen 15 mg/dL (7-17); Carbon Dioxide 26 mmol/L (22-30); Chloride 102 mmol/L (98-107); Estimated Glomerular Filt Rate > 60; Glucose 101 mg/dL (65-110); Potassium 3.9 mmol/L (3.4-5.0); Sodium 137 mmol/L (137-145)
[2022-07-19 17:38] LABS: Thyroid Stimulating Hormone < 0.015 uIU/mL (0.465-4.680)
== END 2022-07-19 16:38 | disposition home or self-care (01) ==
LOC: ANHLAB 16:40
PROVIDERS: PCP Family Medicine; Visit Provider Physician Assistant
DX: R59.0 Localized enlarged lymph nodes (principal); L67.9 Hair color and hair shaft abnormality, unspecified
CPT/HCPCS: 36415; 80053; 84443

== ENCOUNTER 2022-07-22 17:46 | Outpatient (CLI) | payer OTHER, BC, SELFPAY ==
--- NOTE | ~2022-07-22 | MM_ITS ---
EXAMINATION: MM screening be BI w siva HISTORY: Screening mammogram TECHNIQUE: Craniocaudal and mediolateral oblique 3-D tomosynthesis images were obtained and synthetic 2-D images were generated. CAD analysis was submitted and interpreted. COMPARISON: 07/06/2019 BREAST PARENCHYMAL COMPOSITION: The breasts are heterogeneously dense, which may obscure small masses . FINDINGS: There is no suspicious mass, calcification, or architectural distortion to suggest malignan cy in either breast. There has been no suspicious interval change. IMPRESSION: 1. No mammographic evidence of malignancy. 2. Recommend routine screening mammography in one year. BI-RADS Category 1: Negative Reviewed, dictated and finalized at location A.
== END 2022-07-22 17:47 | disposition home or self-care (01) ==
PROVIDERS: PCP Family Medicine; Visit Provider Obstetrics & Gynecology
DX: Z12.31 Encounter for screening mammogram for malignant neoplasm of breast (principal)
CPT/HCPCS: 77063; 77067

== ENCOUNTER → 2022-07-30 09:30 | Outpatient (CLI) | payer OTHER, BC, SELFPAY ==
--- NOTE | ~2022-07-30 | US_ITS ---
US thyroid INDICATION: Hyperthyroidism. TECHNIQUE: Real-time sonographic images of the thyroid gland were obtained. COMPARISON: No prior studies for comparison. FINDINGS: The right thyroid lobe measures 4.7 x 1.6 x 1.6 cm. The left thyroid lobe measures 4.3 x 1 .6 x 1.6 cm. There is normal echotexture and echogenicity throughout the thyroid gland. In the left l ateral neck and area of palpable concern there is a 1.2 x 0.4 x 1.1 cm lymph node. Normal vascular fl ow is present. IMPRESSION: 1. Normal thyroid without discrete nodule or abnormal vascularity. Reviewed, dictated and finalized at location B.
== END ==
PROVIDERS: PCP Family Medicine; Visit Provider Physician Assistant
DX: E07.9 Disorder of thyroid, unspecified (principal); E05.90 Thyrotoxicosis, unspecified without thyrotoxic crisis or storm; R59.0 Localized enlarged lymph nodes
CPT/HCPCS: 76536

== ENCOUNTER 2022-08-04 15:27 | Outpatient (CLI) | payer OTHER, BC, SELFPAY ==
[2022-08-04 16:13] LABS: Free T4 Free Thyroxine 2.12 ng/mL (0.78-2.19)
[2022-08-07 02:12] LABS: Thyroid Peroxidase Antibodies 3 IU/mL (<9)
[2022-08-07 06:05] LABS: Triiodothyronine T3 Free 5.6 pg/mL (2.3-4.2)
== END 2022-08-04 15:28 | disposition home or self-care (01) ==
LOC: ANHLAB 15:28
PROVIDERS: PCP Family Medicine; Visit Provider Physician Assistant
DX: E07.9 Disorder of thyroid, unspecified (principal)
CPT/HCPCS: 36415; 84439; 84481; 86376

== ENCOUNTER 2022-10-19 14:07 | Outpatient (CLI) | payer BC, SELFPAY ==
[2022-10-19 15:14] LABS: Add Urine Microscopic? YES; Appearance Urine Slightly Cloudy (Clear); Bilirubin Urine Negative (Negative); Blood Urine Negative (Negative); Color Urine Light Yellow (Yellow); Glucose Urine UA Negative (Negative); Ketones Urine Negative (Negative); Leukocyte Esterase Ur 1+ LEU/UL (Negative); Nitrate Urine Negative (Negative); Protein Urine Negative (Negative); Specific Grav Ur 1.025 (1.001-1.035); Urobilinogen Urine 0.2 mg/dL (<2.0)
[2022-10-19 15:19] LABS: Bacteria Urine Trace /hpf; Mucus Urine Rare /lpf; Squamous Epithelial Cell Urine Few /hpf (Few)
== END 2022-10-19 14:08 | disposition home or self-care (01) ==
LOC: ANHLAB 14:08
PROVIDERS: PCP Family Medicine; Visit Provider Family Medicine
DX: R30.0 Dysuria (principal)
CPT/HCPCS: 81001

== ENCOUNTER → 2022-10-30 08:12 | Outpatient (CLI) | payer BC, SELFPAY ==
--- NOTE | ~2022-10-30 | US_ITS ---
EXAMINATION: US retroperitoneal comp DATE: 10/30/2022 08:53 INDICATION: chronic cystitis TECHNIQUE: Multiple grayscale and Doppler ultrasound images of the kidneys were obtained. COMPARISON: None. FINDINGS: The right kidney measures 11.5 x 4.4 x 5.7 cm. The left kidney measures 11.6 x 4.9 x 5.2 cm. The kidn eys demonstrate normal parenchymal echogenicity. There is no hydronephrosis. The bladder is only part ially distended which limits evaluation. IMPRESSION: Limited evaluation of the incompletely distended bladder. Otherwise unremarkable renal sonogram findi ngs. Reviewed, dictated and finalized at location K. AND LUBE TECHNICIAN IMPRESSION: Limited evaluation of the incompletely distended bladder. Otherwise unremarkabl e renal sonogram findings.
== END ==
PROVIDERS: PCP Family Medicine; Visit Provider Nurse Practitioner Family
DX: N30.20 Other chronic cystitis without hematuria (principal)
CPT/HCPCS: 76770

== ENCOUNTER 2023-04-20 11:07 | Outpatient (CLI) | payer BC, SELFPAY | END 2023-04-20 11:08 | disposition home or self-care (01) | PROVIDERS: PCP Family Medicine; Visit Provider Obstetrics & Gynecology | DX: O20.0 Threatened abortion (principal); Z3A.00 Weeks of gestation of pregnancy not specified | CPT/HCPCS: 36415; 84702 ==

== ENCOUNTER 2023-04-22 12:25 | Outpatient (CLI) | payer BC, SELFPAY | END 2023-04-22 12:26 | disposition home or self-care (01) | LOC: ANHLAB 12:27 | PROVIDERS: PCP Family Medicine; Visit Provider Obstetrics & Gynecology | DX: O20.0 Threatened abortion (principal); Z3A.00 Weeks of gestation of pregnancy not specified | CPT/HCPCS: 36415; 84702 ==

== ENCOUNTER 2023-05-13 11:31 | Outpatient (CLI) | payer BC, SELFPAY ==
[2023-05-13 12:06] LABS: Basophils Percent Auto 0.7 % (0.2-1.2); Eosinophils Absolute Auto 0.1 K/mm3 (0-0.3); Eosinophils Percent Auto 1.8 % (0-4.4); Hematocrit 36.8 % (37.0-47.0); Hemoglobin 12.2 g/dL (12.0-15.0); Immature Granulocyte Absolute 0.03 K/mm3 (0.00-0.031); Immature Granulocyte Percent A 0.5 % (0-0.5); Lymphocytes Absolute Auto 1.66 K/mm3 (0.9-3.2); Lymphocytes Percent Auto 29.9 % (18.3-44.2); Mean Corpuscular HGB Conc 33.2 g/dl (32-36); Mean Corpuscular Hemoglobin 29.9 pg (26-34); Mean Corpuscular Volume 90.2 fl (80-100); Mean Platelet Volume 9.2 fl (7.4-10.4); Monocytes Absolute Auto 0.4 K/mm3 (0.1-0.6); Monocytes Percent Auto 7.4 % (2.6-8.5); Neutrophils Absolute Auto 3.3 K/mm3 (1.3-6.7); Neutrophils Percent Auto 59.7 % (45.5-73.1); Platelet Count Result 237 k/mm3 (150-375); Red Blood Count 4.08 M/mm3 (4.2-5.4); Red Cell Distribution Width 12.6 % (11.5-14.5); White Blood Count 5.6 K/mm3 (4.5-10.0)
[2023-05-13 12:59] LABS: HIV 1/2 Ab P24 Ag Result Negative (Negative)
[2023-05-13 13:30] LABS: Hepatitis B Surface Antigen Negative (Negative); Rubella IgG Antibody 3.2 IU/ML
[2023-05-14 17:27] LABS: Rapid Plasma Reagin Non-Reactive (NonReactive)
== END 2023-05-13 11:32 | disposition home or self-care (01) ==
LOC: ANHLAB 11:32
PROVIDERS: PCP Family Medicine; Visit Provider Obstetrics & Gynecology
DX: Z34.90 Encounter for supervision of normal pregnancy, unspecified, unspecified trimester (principal)
CPT/HCPCS: 36415; 85025; 86592; 86644; 86703; 86747; 86762; 86787; 86850; 86900; 86901; 87086; 87340; G0432

== ENCOUNTER 2023-06-08 14:06 | Outpatient (CLI) | payer BC, SELFPAY ==
[2023-06-08 14:47] LABS: Beta HCG Quantitative 136.07 mIU/ML
== END 2023-06-08 14:07 | disposition home or self-care (01) ==
LOC: ANHLAB 14:07
PROVIDERS: PCP Family Medicine; Visit Provider Obstetrics & Gynecology
DX: O02.1 Missed abortion (principal); Z3A.00 Weeks of gestation of pregnancy not specified
CPT/HCPCS: 36415; 84702

== ENCOUNTER 2023-06-24 16:51 | Outpatient (CLI) | payer BC, SELFPAY ==
[2023-06-24 17:45] LABS: Beta HCG Quantitative 14.72 mIU/ML
== END 2023-06-24 16:52 | disposition home or self-care (01) ==
LOC: ANHLAB 16:52
PROVIDERS: PCP Family Medicine; Visit Provider Obstetrics & Gynecology
DX: O02.1 Missed abortion (principal)
CPT/HCPCS: 36415; 84702

== ENCOUNTER 2023-07-13 17:00 | Outpatient (CLI) | payer BC, SELFPAY ==
[2023-07-13 17:48] LABS: Beta HCG Quantitative 2.41 mIU/ML
== END 2023-07-13 17:01 | disposition home or self-care (01) ==
LOC: ANHLAB 17:01
PROVIDERS: PCP Family Medicine; Visit Provider Obstetrics & Gynecology
DX: O03.9 Complete or unspecified spontaneous abortion without complication (principal)
CPT/HCPCS: 36415; 84702

== ENCOUNTER 2023-09-12 15:18 | Outpatient (CLI) | payer BC, SELFPAY ==
--- NOTE | ~2023-09-12 | MM_ITS ---
EXAMINATION: MM screening be BI w siva HISTORY: Screening mammogram TECHNIQUE: Craniocaudal and mediolateral oblique 3-D tomosynthesis images were obtained and synthetic 2-D images were generated. CAD analysis was submitted and interpreted. COMPARISON: 07/22/2022 bilateral screening mammogram 07/06/2019 bilateral diagnostic mammogram BREAST PARENCHYMAL COMPOSITION: The breasts are heterogeneously dense, which may obscure small masses . FINDINGS: Occasional benign appearing calcifications. There is no evidence of suspicious mass, calcif ication, or architectural distortion to suggest malignancy in either breast. There has been no suspic ious interval change. IMPRESSION: 1. No mammographic evidence of malignancy. 2. Recommend routine screening mammography in one year. BI-RADS Category 2: Benign finding(s). Reviewed, dictated and finalized at location B. ICAL SUPERVISOR
== END 2023-09-12 15:19 | disposition home or self-care (01) ==
LOC: ANHIMG 15:52
PROVIDERS: PCP Family Medicine; Visit Provider Obstetrics & Gynecology
DX: Z12.31 Encounter for screening mammogram for malignant neoplasm of breast (principal)
CPT/HCPCS: 77063; 77067

== ENCOUNTER 2024-05-25 09:37 | Outpatient (CLI) | payer OTHER, SELFPAY ==
--- NOTE | ~2024-05-25 | MR_ITS ---
MR breast BI wo/w con 05/25/2024 16:31 CDT INDICATION: Breast changes. Nipple retraction. TECHNIQUE: MRI of the breasts perform using standard protocol pre-and post IV contrast with the follo wing sequences: Axial T2 STIR, axial T1, axial vibrant T1 with fat suppression precontrast and multip hasic postcontrast. 15 cc MultiHance administered intravenously. COMPARISON: Mammogram dated 09/12/2023 and 07/22/2022 FINDINGS: Examination limited due to extensive background enhancement. There are no abnormalities on the precontrast sequences. There is marked background parenchymal enhancement. In the upper outer tasha drant of the right breast at 9:00 posteriorly there is an enhancing mass measuring 2.2 x 1.2 x 1.65 c m with rapid washout kinetics. No evidence of signal abnormalities in the axillary or internal mamma ry node distributions. LEFT BREAST: No signal abnormalities on precontrast sequences. There is marked background parenchyma l enhancement. In the subareolar location of the left breast there is abnormal enhancing soft tissue measuring 1.8 x 0.7 x 1.1 cm with rapid washout enhancement. There is nipple retraction. No evidence of signal abnormalities in the axillary or internal mammary node distributions.] IMPRESSION: 1: Right breast: Abnormal enhancing mass upper outer quadrant of the right breast at 9:00 posteriorl y measuring up to 2.2 cm. 2: Left breast: Abnormal left nipple retraction with underlying subareolar soft tissue with rapid wa shout enhancement. This area of abnormality measures 1.8 x 1.1 x 0.7 cm. 3: Study limited due to marked bilateral background enhancement within the breasts. Recommendation: Recommend diagnostic bilateral mammogram and complete bilateral breast ultrasound wit h attention to the areas of abnormality by MRI. BI-RADS CATEGORY 0 - INCOMPLETE STUDY, NEED ADDITIONAL IMAGING EVALUATION. Reviewed, dictated and finalized at location B. IMPRESSION: 1: Right breast: Abnormal enhancing mass upper outer quadrant of the right yun ast at 9:00 posteriorly measuring up to 2.2 cm. 2: Left breast: Abnormal left nipple retraction with underlying subareolar sof t tissue with rapid washout enhancement. This area of abnormality measures 1.8 x 1.1 x 0.7 cm. 3: Study limited due to marked bilateral background enhancement within the nnamdi sts. Recommendation: Recommend diagnostic bilateral mammogram and complete bilateral breast ultrasound with attention to the areas of abnormality by MRI. BI-RADS CATEGORY 0 - INCOMPLETE STUDY, NEED ADDITIONAL IMAGING EVALUATION.
== END 2024-05-25 09:38 | disposition home or self-care (01) ==
PROVIDERS: PCP Family Medicine; Visit Provider Surgery
DX: N64.53 Retraction of nipple (principal); N63.11 Unspecified lump in the right breast, upper outer quadrant
CPT/HCPCS: 77049; A9577; C8908

== ENCOUNTER 2024-06-21 13:19 | Outpatient (CLI) | payer OTHER, SELFPAY ==
--- NOTE | ~2024-06-21 | MMUS_ITS ---
EXAMINATION: MM diagnostic be BI w siva, US breast BI complete HISTORY: Abnormal MRI of the breasts. TECHNIQUE: Additional 3-D tomosynthesis images of the breasts were performed and synthetic 2-D images were generated. CAD analysis was submitted and interpreted. High resolution complete bilateral breas t ultrasound was performed. COMPARISON: Comparison to multiple prior studies sequentially, with oldest reviewed study dated 03/2019. BREAST PARENCHYMAL COMPOSITION: Dense: The breasts are heterogeneously dense, which may obscure small masses FINDINGS: MAMMOGRAPHIC FINDINGS: There are no suspicious masses, calcifications or architectural distortion in either breast to sugges t malignancy. ULTRASOUND: Complete US of all 4 quadrants of the breast/s and retroareolar region was reviewed. Right breast ultrasound: At 11:00, 5 cm from the nipple there is an irregular shaped hypoechoic mass measuring up to 1.3 cm with internal vascularity and no posterior features. There are multiple cysts of the right breast. At 6:00, 4 cm from the nipple there is an oval hypoechoic 7 mm mass with heterog eneous internal echoes. No posterior features or internal vascularity. There is parallel orientation. This likely is benign. Left breast ultrasound: At 6:00, 1 cm from the nipple there is an oval hypoechoic Mass without internal vascularity, likely focally dilated duct or complicated cysts. At 9:00, 3 cm fr om the nipple there is a 4 mm cyst. At 11:00, 2 cm from the nipple there is a 4 mm cyst. IMPRESSION: 1. Suspicious hypoechoic right breast mass at 11:00, 1.3 cm from the nipple which may correspond to t he area of concern on prior MRI examination. 2. Ultrasound-guided right breast biopsy recommended. BI-RADS category 4, suspicious findings. Reviewed, dictated and finalized at location B. IMPRESSION: 1. Suspicious hypoechoic right breast mass at 11:00, 1.3 cm from the nipple whi ch may correspond to the area of concern on prior MRI examination. 2. Ultrasound-guided right breast biopsy recommended. BI-RADS category 4, suspicious findings.
== END 2024-06-21 13:20 | disposition home or self-care (01) ==
LOC: ANHIMG 13:20
PROVIDERS: PCP Family Medicine; Visit Provider Surgery
DX: N64.53 Retraction of nipple (principal); R92.8 Other abnormal and inconclusive findings on diagnostic imaging of breast
CPT/HCPCS: 76641; 77062; 77066; G0279

== ENCOUNTER 2024-08-01 08:46 | Outpatient (CLI) | payer OTHER, SELFPAY ==
--- NOTE | ~2024-08-01 | MMUS_ITS ---
MM post biopsy diagnostic RT, US breast biopsy RT w image EXAMINATION: US GUIDED NEEDLE BIOPSY WITH VACUUM ASSISTANCE DATE: 08/01/2024 11:04 CDT INDICATION: Right breast mass seen on prior exam. Ultrasound-guided core biopsy is requested to eval te for malignancy. BREAST PARENCHYMAL COMPOSITION: Dense: The breasts are heterogeneously dense, which may obscure small masses TECHNIQUE AND FINDINGS: The risks and potential benefits of the procedure were discussed with the patient, and written inform ed consent was obtained. After sterile preparation of the right breast, 1% lidocaine was utilized fo r local anesthesia. 1% lidocaine with epinephrine was used for deep anesthesia. A 10G vacuum-assisted biopsy gun needle was advanced through to the outer edge of the region of inter est from a superior approach utilizing sonographic guidance. A total of for tissue core samples were obtained through the lesion. An Inrad tissue marker clip was then placed at the biopsy site. Hemost asis was achieved. The patient tolerated procedure well and there was no evidence of immediate complication. The patien t was given verbal instructions partly is from the department. Right breast mammograms to document t issue marker clip placement. The tissue samples were submitted to surgical pathology for histologic a nalysis. IMPRESSION: 1. Successful ultrasound-guided vacuum-assisted biopsy of right breast mass with post procedure mamm ogram for marker placement. Please refer to pathology report for histologic analysis. Reviewed, dictated and finalized at location B. IMPRESSION: 1. Successful ultrasound-guided vacuum-assisted biopsy of right breast mass wi th post procedure mammogram for marker placement. Please refer to pathology rep ort for histologic analysis.
== END 2024-08-01 08:47 | disposition home or self-care (01) ==
PROVIDERS: PCP Family Medicine; Visit Provider Surgery
DX: D24.1 Benign neoplasm of right breast (principal); N63.11 Unspecified lump in the right breast, upper outer quadrant; R92.8 Other abnormal and inconclusive findings on diagnostic imaging of breast
CPT/HCPCS: 19083; 77065; 88305; A4648

== ENCOUNTER 2025-02-14 14:18 | Outpatient (CLI) | payer OTHER, SELFPAY ==
--- NOTE | ~2025-02-14 | US_ITS ---
US breast BI limited 02/14/2025 15:30 Indication: Follow-up breast masses Procedure: High-resolution Limited bilateral breast ultrasound Comparison: Ultrasound dated 06/21/2024 Findings: Right breast: At 11:00, 5 cm from the nipple there is an oval hypoechoic mass measuring 9 x 9 x 6 mm with parallel orientation, no internal vascularity and no posterior features, decreased in size from prior study allowing for technique. There is an adjacent 7 mm intramammary lymph node. Left breast: At 6:00, 1 cm from the nipple there is a 4 mm cyst. At 3:00 near the nipple there is a 9 mm cyst. No suspicious left breast masses to suggest malignancy. Impression: 1: Decreased size of hypoechoic 9 mm right breast mass at 11:00, 5 cm from the nipple, likely benign. No sonographic evidence for malignancy in the left breast. BI-RADS CATEGORY 3-PROBABLY BENIGN FINDING RECOMMENDATION: Six-month follow-up bilateral mammogram and Limited right breast ultrasound recommend ed. Reviewed, dictated and finalized at location B. Impression: 1: Decreased size of hypoechoic 9 mm right breast mass at 11:00, 5 cm from the nipple, likely benign. No sonographic evidence for malignancy in the left breas t. BI-RADS CATEGORY 3-PROBABLY BENIGN FINDING RECOMMENDATION: Six-month follow-up bilateral mammogram and Limited right breas t ultrasound recommended.
--- OUTSIDE RECORDS SUMMARY | 2025-02-14 14:35 | XMS_ITS | Referral Summary ---
Author Organization [facility] [address] [place] [id number] Care Team Providers Care Fourth Hand Name Role Phone Dylon Womack MD Primary Care Provider [phone] Eric Rajan MD Unavailable [phone] Encounters Date Type Department Care Team Description 12/11/2024 Nurse Triage [facility] Primary Care at [address] [id number] Dylon Womack MD from Last 3 Months Allergies Active Allergy Reactions Criticality Noted Date Comments Sulfamethoxazole-Trimethoprim Unknown 2020 Medications montelukast (SINGULAIR) 10 mg tabletIndicatio ns:Seasonal Allergic Rhinitis Take 1 tablet (10 mg total) by mouth nightly 30 tablet 2 04/09/2024 5 Active Active Problems Problem Noted Date Diagnosed Date Well adult exam 04/09/2024 Assessment & Plan (04/09/2024 12:55 PM CDT): A(n) yearly well adult visit has been performed today. Erin Tavarez is not up to date on screening tests. She is in need of Hepatitis-B, C and Cholesterol screening. She is up to date on needed preventative vaccinations. We discussed healthy lifestyle habits, educational material has been given. Medications reviewed, changes documented as per the medical record and discussed with patient along with risks vs benefits. Return in 1 year Encounter for medical examination to establish c are 04/04/2023 Assessment & Plan (04/04/2023 8:29 PM CDT): A(n) initial well visit to establish care has been performed today. Erin Tavarez is not up to date on screening tests. She is in need of Breast cancer screening and Cholesterol screening. She is up to date on needed preventative vaccinations. We discussed healthy lifestyle habits, educational material has been given. Medications reviewed, changes documented as per the medical record and discussed with patient along with risks vs benefits. 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): Reviewed patient labs from July 2022 Suppressed TSH, slightly elevated free T3 level Normal free T4 levels DD: thyroiditis versus Graves disease Patient currently not on any thyroid medication Patient clinically euthyroid Repeat thyroid function test today include TSH, free T4, free T3 levels, TSI, TSH receptor antibody Further plans based repeat lab results from today Advanced maternal age, 1st 03/27/2021 Overview (04/09/2024): 40 y/o O+/ antibody-neg/ NI /HIV-NR/ rpr-neg/ HBSag-NR HH 12.7/37.7 Plt 329 CMV/Parvo - Immune Uterine fibroid 03/27/2021 Overview (04/09/2024): 2cm - posterior Immunizations Immunization Administration Dates Next Due Influenza, Unspecified 10/31/2022(Deferr ed: Patient Refused),10/31/2021(Deferred: Patient Refused) PPD TEST 06/05/2024 Tdap 12/29/2020 Social History Tobacco Use Types Packs/Day Years Used Date Smoking Tobacco: Former Cigarettes 0.5 23 1 7 - 2019 Smokeless Tobacco: Former AUDIT-C Answer Date Recorded Q1: How often do you have a drink containing alc ohol? Monthly or less 04/04/2023 Q2: How many drinks containi ng alcohol do you have on a typical day when you are drinking? 1 or 2 04/04/2023 Q3: How often do you have si x or more drinks on one occasion? Never 04/04/2023 PHQ-2 Answer Date Recorded PHQ-2 Total Score (If total score is 3 or more points, staff should administer the PHQ-9) 0 04/09/2024 Comments No Sex and Gender Information Value Date Recorded Sex Assigned at Not on file Legal Sex Female 1:27 PM CDT Gender Identity Not on file Sexual Orientation Not on file Last Filed Vital Signs Vital Sign Reading Time Taken Comments Blood Pressure 118/80 04/09/2024 11:04 AM CDT Pulse 71 04/09/2024 11:04 AM CDT Temperature 36.2 C (97.1 F) 04/09/2024 11:04 AM CDT Respiratory Rate 16 04/09/2024 11:04 AM CDT Oxygen Saturation 98% 04/09/2024 11:04 AM CDT Inhaled Oxygen Concentration - - Weight 74.4 kg (164 lb) 04/09/2024 11:04 AM CDT Height 167.6 cm (5' 6 ) 04/09/2024 11:04 AM CDT Body Mass Index 26.47 04/09/2024 11:04 AM CDT Plan of Treatment Not on file Procedures Procedure Name Priority Date/Time Associated Diagnosis Comments HEPATITIS C ANTIBODY Routine 04/09/2024 11:35 AM CDT Need for hepatitis C screening test from Last 3 Months or Most Recently Relevant to Health Maintenance Results * Hepatitis C antibody Blood (04/09/2024 11:35 AM CDT) Hep C Ab Nonreactive Nonreactive Comment: Interpretive Data Nonreactive: Antibodies to HCV not detected. Does NOT exclude the possibility of recent exposure to HCV. Equivocal: Equivocal for HCV antibodies. Supplemental molecular testing will be automatically performed to determine infection status in accordance with current CDC screening recommendations. Reactive: Positive for HCV antibodies. This may represent current or past HCV infection. Supplemental molecular testing will be automatically performed to determine current infection status in accordance with current CDC screening recommendations. Interpretive data was last revised on 2020. Blood 04/09/2024 11:3 5 AM CDT 04/09/2024 3:12 PM CDT Dylon Womack MD LAB MICROBIOLOGY - GENERAL ORDERABLES Final Result Performing Organization Address City/State/[facility] Phone Number JOSE GUERRA [phone] [facility] Department [place] [address] from Last 3 Months or Most Recently Relevant to Health Maintenance Insurance [facility] HMO/PPO Address: [address] [address] [place] [address] Care Teams Fourth Hand Relationship Specialty Start Date End Date Dylon Womack MD [address] [facility] [address] [place] [address] PCP - General Family Medicine 04/04/23 Eric Rajan MD [address] [place] [address] Referring Physician Obstetrics and Gynecology 04/09/24
--- OUTSIDE RECORDS SUMMARY | 2025-02-14 14:35 | XMS_ITS | Clinical Summary ---
Author Organization [facility] Physician Office Building [address] [place] [id number] Care Team Providers Care Timber Framer Name Role Phone Dylon Womack MD Primary Care Provider [phone] Eric Rajan MD Unavailable [phone] Allergies Active Allergy Reactions Criticality Noted Date [...] 10/12/2022 Assessment & Plan (10/12/2022 3:04 PM RF ENGINEER): Reviewed patient labs from July 2022 Suppressed [...] fibroid 03/27/2021 Overview (04/09/2024): 2cm - posterior Encounters Date Type Department Care Team Description 12/11/2024 Nurse Triage [facility] Primary Care at [address] [id number] Dylon Womack MD from Last 3 Months Immunizations Immunization Administration Dates Next Due Influenza, Unspecified 10/31/2022(Deferr ed: Patient Refused),10/31/2021(Deferred: Patient Refused) PPD TEST 06/05/2024 Tdap 12/29/2020 Surgical History Surgery Date Site/Laterality Comments APPENDECTOMY 10/31/1987 - 10/30/1988 OVARIAN CYST REMOVAL 10/31/2016 - 10/30/2017 Right Medical History Medical History Date Comments Abnormal thyroid function test Essential tremor Family History Medical History Relation Name Comments No Known Problems Brother Hypertension Father Hypothyroidism Father No Known Problems Maternal Grandfather Kidney disease Maternal Grandmother No Known Problems Mother Leukemia Paternal Grandfather Hypertension Paternal Grandmother Hypothyroidism Paternal Grandmother No Known Problems Sister Relation Name Status Comments Brother Alive Father Alive Maternal Grandfather Maternal Grandmother Alive Mother Alive Paternal Grandfather Paternal Grandmother Alive Sister Alive Social History Tobacco Use Types Packs/Day Years Used Date Smoking Tobacco: Former Cigarettes 0.5 23 1 2019 Smokeless Tobacco: Former AUDIT-C Answer Date [...] on file Sexual Orientation Not on file Obstetrics History Last Filed Vital Signs Vital Sign Reading [...] 04/09/2024 11:04 AM CDT Plan of Treatment Health Maintenance Due Date Last Done Comments Breast Cancer Screening-Mammogram 1981 Cervical Cancer Screening 1981 Influenza Vaccine (#1) 2024 Depression Screening 04/09/2025 04/09/2024, 04/04/2023, 10/12/2022 Regular Well Visit/Exam 18-64 04/09/2025 04/09/2024, 04/04/2023 DTaP/Tdap/Td Vaccine (2 - Td or Tdap) 12/29/2030 12/29/2020 Hepatitis B Screening Completed 04/09/2024 Hepatitis C Screening Completed 04/09/2024 HPV Vaccines Aged Out No longer eligi ble based on patient's age to complete this topic Pneumococcal vaccine <65 Aged Out No longer eligible based on patient's age to complete this topic Varicella Vaccines Discontinued Procedures Procedure Name Priority Date/Time Associated Diagnosis [...] GENERAL ORDERABLES Final Result Performing Organization Address City/State/[facility] Phone Number [facility] [phone] Department [place] [address] from Last 3 Months or Most Recently Relevant to Health Maintenance Insurance [facility] Care Teams Timber Framer Relationship Specialty Start Date End Date Dylon Womack MD [address] [facility] [address] [place] [address] PCP - General Family Medicine 04/04/23 Eric Rajan MD [address] [place] [address] Referring Physician Obstetrics and Gynecology 04/09/24
--- OUTSIDE RECORDS SUMMARY | 2025-02-14 14:35 | XMS_ITS | Clinical Summary ---
Author Organization [facility] Address [address] [place] [address] Care Team Providers Care Refueler Name Role Phone Unavailable Primary Care Provider Unavailabl e Source Comments [facility],non-owned Affiliates and Associated Physician Practices is amultiple site organization consisting of ambulatory clinics and hospital sitesin [place], [place], [place] and [place]. This disclosure is being madepursuant to the Care Everywhere program and may not contain all information available regarding this patient. Last updated 18.[facility] [employer] Allergies Active Allergy Reactions Criticality Noted Date Comments Sulfamethoxazole W-Trimethoprim Unknown 03/01 Active Problems Problem Noted Date Diagnosed Date Supervision of normal first 09/02/2021 Advanced maternal age, 1st 03/27/2021 Overview (03/27/2021): 40 y/o O+/ antibody-neg/ NI /HIV-NR/ rpr-neg/ HBSag-NR HH 12.7/37.7 Plt 329 CMV/Parvo - Immune Uterine fibroid 03/27/2021 Overview (03/27/2021): 2cm - posterior Social History Tobacco Use Types Packs/Day Years Used Date Smoking Tobacco: Never Assessed Comments No Sex and Gender Information Value Date Recorded Sex Assigned at Female 08/03/2021 11:05 AM CDT Legal Sex Female 7:09 AM CDT Gender Identity Female 08/03/2021 11:05 AM CDT Sexual Orientation Straight 08/03/2021 11 :05 AM CDT Plan of Treatment Health Maintenance Due Date Last Done Comments LIPID TESTING 1981 MAMMOGRAM 1981 PAP SMEAR 1981 HIV SCREENING 1996 HEPATITIS C SCREENING 12/08/1999 DTAP/TDAP/TD VACCINES (1 - Tdap) 2000 HEPATITIS B VACCINE (1 of 3 - 19+ 3-dose series) 2000 COVID-19 VACCINE (1 - 2023-2 5 season) 2024 DEPRESSION SCREENING 10/31/2024 INFLUENZA VACCINE (Season Ended) 2025 ZOSTER VACCINE (1 of 2) 2031 HIB VACCINE Aged Out No longer eligi ble based on patient's age to complete this topic HPV VACCINE Aged Out No longer eligi ble based on patient's age to complete this topic MENINGOCOCCAL (Group B) VACC INE SHARED DECISION-MAKING Aged Out No longer eligibl e based on patient's age to complete this topic MENINGOCOCCAL GROUPS A/C/Y/W VACCINE Aged Out No longer eligible b ased on patient's age to complete this topic PNEUMOCOCCAL VACCINE Aged Out No long er eligible based on patient's age to complete this topic Insurance [facility]
== END 2025-02-14 14:19 | disposition home or self-care (01) ==
PROVIDERS: PCP Family Medicine; Visit Provider Surgery
DX: N63.11 Unspecified lump in the right breast, upper outer quadrant (principal)
CPT/HCPCS: 76642

== ENCOUNTER 2025-08-12 10:56 | Outpatient (CLI) | payer OTHER, SELFPAY ==
--- NOTE | ~2025-08-12 | US_ITS ---
Clinical history:6 month follow-up EXAM:Ultrasound breast bilateral Limited TECHNIQUE:Oval static grayscale images and color Doppler images were obtained of the areas of interest in both breasts. Comparisons:Breast ultrasound 02/14/2025; breast ultrasound June 21, 2024 FINDINGS: There is a 0.6 x 0.8 x 0.6 cm hypoechoic mass in the right breast 11:00 position 5 cm from the nipple middle depth. The finding measured 0.9 x 0.9 x 0.6 cm on 02/14/2025. There is a 0.3 x 0.3 x 0.3 cm benign cyst and was present 12:00 position. There is a 0.7 x 0.7 x 0.4 cm benign cyst in the left breast at the 3:00 position. There is a 0.4 x 0.3 x 0.4 cm benign cyst in the left breast at 9:00 position. IMPRESSION: 1. Stable probably benign mass in the right breast at the 11:00 position. A diagnostic right breast ultrasound in 6 months is recommended. 2. No sonographic evidence for malignancy left breast. BI-RADS 3-Probably benign-Short interval follow-up suggested. Reviewed, dictated and finalized at location Q. IMPRESSION: 1. Stable probably benign mass in the right breast at the 11:00 position. A jamaal gnostic right breast ultrasound in 6 months is recommended. 2. No sonographic evidence for malignancy left breast. BI-RADS 3-Probably benign-Short interval follow-up suggested.
--- NOTE | ~2025-08-12 | MM_ITS ---
EXAMINATION: MM screening be BI w siva HISTORY: Screening TECHNIQUE: Craniocaudal and mediolateral oblique 3-D tomosynthesis images were obtained and synthetic 2-D images were generated. CAD analysis was submitted and interpreted. COMPARISON: 09/12/2023 BREAST PARENCHYMAL COMPOSITION: The breasts are extremely dense, which lowers the sensitivity of mammography. FINDINGS: There is no evidence of suspicious mass, calcification, or architectural distortion to suggest malignancy. There has been no suspicious interval change. IMPRESSION: 1. No mammographic evidence of malignancy. Recommend routine screening mammography in one year. BI-RADS Category 2: Benign finding(s) Reviewed, dictated and finalized at location Q. IMPRESSION: 1. No mammographic evidence of malignancy. Recommend routine screening mammogra phy in one year. BI-RADS Category 2: Benign finding(s)
--- OUTSIDE RECORDS SUMMARY | 2025-08-12 12:15 | XMS_ITS | Clinical Summary ---
Author Organization [facility] Physician Office Building [address] [place] [id number] Care Team Providers Care Blood Bank Attendant Name Role Phone Dylon Womack MD Primary Care Provider [phone] Eric Rajan MD Unavailable [phone] Allergies Active Allergy Reactions Criticality Noted Date Comments Sulfamethoxazole-Trimethoprim Unknown 2020 Medications montelukast (SINGULAIR) 10 mg tabletIndicatio ns:Seasonal Allergic Rhinitis Take 1 tablet (10 mg total) by mouth nightly 30 tablet 2 04/09/2024 Active Active Problems Problem Noted Date Diagnosed [...] 10/12/2022 Assessment & Plan (10/12/2022 3:04 PM RESIN REMOVER): Reviewed patient labs from July 2022 Suppressed [...] Smoking Tobacco: Former Cigarettes 0.5 23 1 - 2019 Smokeless Tobacco: Former AUDIT-C Answer [...] 11:04 AM CDT Height 167.6 cm (5' 6) 04/09/2024 11:04 AM CDT Body Mass Index 26.47 04/09/2024 11:04 AM CDT Plan of Treatment Health Maintenance Due Date Last Done Comments Breast Cancer Screening-Mammogram 1981 Cervical Cancer Screening 1981 HPV Vaccines (1 - 3-dose SCDM series) 2008 Depression Screening 04/09/2025 04/09/2024, 04/04/2023, 10/12/2022 Regular Well Visit/Exam 18-64 04/09/2025 04/09/2024, 04/04/2023 Influenza Vaccine (#1) 2025 DTaP/Tdap/Td Vaccine (2 - Td or Tdap) 12/29/2030 12/29/2020 Hepatitis B Screening Completed 04/09/2024 Hepatitis C Screening Completed 04/09/2024 Pneumococcal vaccine <65 Aged Out No longer [...] GENERAL ORDERABLES Final Result Performing Organization Address City/State/[facility] [place] Phone Number [facility] [phone] [place] [address] from Last 3 Months or Most Recently Relevant to Health Maintenance Insurance [employer] [facility] H[facility]/PPO Address: [address] [address] [place] [address] Care Teams Blood Bank Attendant Relationship Specialty Start Date End Date Dylon Womack MD [address] [facility] [address] [place] [address] PCP - General Family Medicine 04/04/23 Eric Rajan MD [address] [place] [address] Referring Physician Obstetrics and Gynecology 04/09/24
--- OUTSIDE RECORDS SUMMARY | 2025-08-12 12:15 | XMS_ITS | Clinical Summary ---
Author Organization [facility] Address [address] [place] [address] Care Team Providers Care Cloth Winder Name Role Phone Unavailable Primary Care Provider Unavailabl e Source Comments [facility],non-owned Affiliates and Associated Physician Practices is amultiple site organization consisting of ambulatory clinics and hospital sitesin [place], [place], [place] and [place]. This disclosure is being madepursuant to the Care Everywhere program and may not contain all information available regarding this patient. Last updated 18.[facility] [employer] Allergies Active Allergy Reactions Criticality Noted Date [...] Done Comments LIPID TESTING 1981 MAMMOGRAM 1981 HIV SCREENING 1996 HEPATITIS C SCREENING 12/08/1999 DTAP/TDAP/TD VACCINES (1 - Tdap) 2000 HEPATITIS B VACCINE (1 of 3 - 19+ 3-dose series) 2000 PAP SMEAR 2002 HPV VACCINE (1 - 3-dose SCDM series) 2008 DEPRESSION SCREENING 10/31/2024 COVID-19 VACCINE (1 - 2023-2 5 season) 2025 INFLUENZA VACCINE (#1) 2025 ZOSTER VACCINE (1 of 2) 2031 [...] patient's age to complete this topic Insurance [facility] [place] [address] [address]
== END 2025-08-12 10:57 | disposition home or self-care (01) ==
LOC: ANHFOHIMG 10:58
PROVIDERS: PCP Family Medicine; Visit Provider Obstetrics & Gynecology
DX: Z12.31 Encounter for screening mammogram for malignant neoplasm of breast (principal); N63.11 Unspecified lump in the right breast, upper outer quadrant; R92.8 Other abnormal and inconclusive findings on diagnostic imaging of breast; N63.10 Unspecified lump in the right breast, unspecified quadrant; N63.20 Unspecified lump in the left breast, unspecified quadrant; N64.53 Retraction of nipple
CPT/HCPCS: 76642; 77063; 77067